=== PATIENT | male | born 1965 | race Caucasian/White ===

== ENCOUNTER 2024-06-04 16:13 | Emergency (ER) | payer OTHER, SELFPAY ==
--- OUTSIDE RECORDS SUMMARY | 2024-06-04 16:15 | XMS_ITS | Clinical Summary ---
Author Organization [facility] Address [place], [place] [address] Care Team Providers Care Hospital Sales Representative Name Role Phone VotelBritton MD Primary Care Provider + Allergies No known active allergies Medications lisinopriL (PRINIVIL; ZESTRIL) 20 mg tabletIndication s:Hypertension, unspecified type Take 1 Tablet (20 mg) by mouth once daily. 90 Tablet 3 4 Active CPAPIndications: SANTOSH (obstructive sleep apnea) RESMED CPAP (E0601) machine for home use at pressure: 6-15cmw, Choice of mask (A7030 or A7034) w/full face cushion (A7031) x1/mo, nasal cushion (A7032) x2/mo, or nasal pillows (A7033) x 2/mo; Length of Need: 99 months; Frequency of use: Daily 1 Each 11 4 Active Active Problems Problem Noted Date Diagnosed Date Adjustment disorder with mixed anxiety and depre ssed mood 07/21/2019 Anal fissure 11/25/2016 Overview (11/25/2016): Colonoscopy 11/2016 anal fissure repeat in 10 years HTN (hypertension) 06/17/2009 High cholesterol 06/17/2009 SANTOSH AHI- 14, positional 41 04/21/2008 Resolved Problems Problem Noted Date Diagnosed Date Resolved Date Elevated BP 04/03/2008 05/20/2009 Encounters Date Type Department Care Team Description 03/05/2024 8:30 AM CDT Telemedicine [facility] [address] [place] [address] Kelby Jones MD Sleep Follow-up; Telehealth (Virtual visit, no vitals taken) from Last 3 Months Immunizations Name Administration Dates Next Due COVID-19 vaccine (Moderna 100mcg/0.5mL) PF, MDV 04/16/2021,07/26/2020,06/28/2020 Hepatitis A (Adult) 08/06/2014,02/09/2011 Influenza RIV4 (Age 18+ Year s) PRESERV FREE 04/23/2022 Influenza, IIV3 (Age 6-35 mos) 6,02/11/2015,02/09/2011,2008 Influenza, IIV3 (Age >=3 years) 03/19/20 14,03/07/2013,03/08/2012,2010,03/11/2010,05/05/2009,04/03/2008,1 06/28/2005,03/25/2004 Influenza, IIV4 04/22/2023,,03/26/2020,2017 Influenza, IIV4 (=>6mos) MDV 03/07/2019 Influenza,CCIIV4 PRESERV FREE 03/22/2017 Td (Age >=7 Years) 06/16/2003 Td, Preservative Free (age > = 7 Years) 10/11/2022 Tdap 10/04/2012 Zoster (Shingrix-RZV, recombinant) 10/11/2022, Family History Medical History Relation Name Comments Diabetes Brother 2 type 2 Cancer-ovarian Daughter Mandi large tumor, small malignancy Hypertension Father Other Father hx of blood sho ts Diabetes Mother Hypertension Mother Relation Name Status Comments Brother 1 Alive Brother 2 Daughter Mandi Alive Father Alive Mother Alive Social History Tobacco Use Types Packs/Day Years Used Date Smoking Tobacco: Never Smokeless Tobacco: Current Chew Last attempted to quit: 02/03/2009 Tobacco Cessation:Ready to Q uit: No; Counseling Given: Yes Comments:on/off Alcohol Use Standard Drinks/Week Comments Yes 0 (1 standard drink = 0.6 oz pur e alcohol) 4 drinks per week [facility] Utilities Answer Date Recorded Do you have trouble paying f or utilities (for example, heat, electricity, water, phone)? Yes 11/14/2023 PHQ-2 Answer Date Recorded PHQ-2 TOTAL SCORE 3 11/14/2023 Social Connections Answer Date Recorded Do you often feel lonely or isolated from those around you? 0 11/14/2023 Financial Resource Strain Answer Date R ecorded Difficulty of Paying Living Expenses 3 11/14/2023 Difficulty of Paying Living Expenses Not on file 11/14/2023 Food Insecurity Answer Date Recorded Do you worry your food will run out before you are able to buy more? 1 11/14/2023 Transportation Needs Answer Date Record ed Does lack of transportation keep you from medica l appointments? 1 11/14/2023 Does lack of transportation keep you from work, meetings or getting things that you need? 1 11/14/2023 Housing Stability Answer Date Recorded What is your housing situation today? 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 Not on file Not on f ile Obstetrics History Last Filed Vital Signs Vital Sign Reading Time Taken Comments Blood Pressure 134/86 11/14/2023 8:29 AM CDT Pulse 66 11/14/2023 8:29 AM CDT Temperature 36.8 C (98.3 F) 11/14/2023 8:26 AM CDT Respiratory Rate 16 04/03/2008 7:41 AM CDT Oxygen Saturation 95% 11/14/2023 8:26 AM CDT Inhaled Oxygen Concentration - - Weight 106.4 kg (234 lb 8 oz) 11/14/2023 8:26 AM CDT Height 172.7 cm (5' 8) 11/14/2023 8:26 AM CDT Body Mass Index 35.66 11/14/2023 8:26 AM CDT Plan of Treatment Health Maintenance Due Date Last Done Comments HIV for age 15-65 1981 Hepatitis C screening for ag e 18-79 1984 Pneumococcal series for age 50+ (1 of 1 - PCV) 2016 Influenza for age 50-64 02/04/2024 04/22/20 23, 04/23/2022, 02/27/2021, Additional history exists BMI (ht and wt on same day) for age 18+ 11/13/2024 11/14/2023, 10/11/2023, 10/11/2022, Additional history exists Depression screening for age 12+ 11/13/2024 11/14/2023, 11/08/2023, 10/11/2023, Additional history exists Colonoscopy through age 75 11/25/2026 11/25/2016, Lipids for age 45-75 11/05/2028 11/06/2023, 10/11/2022, 10/06/2021, Additional history exists Tetanus booster 10/11/2032 10/11/2022, 0507/2012, 06/16/2003 Tdap Completed 10/04/2012 Zoster (shingles) series for age 50+ Completed 10/11/2022, 10/06/2021 COVID-19 vaccine series Completed 03/02/20 24, 04/22/2023, 04/23/2022, Additional history exists Procedures Procedure Name Priority Date/Time Associated Diagnosis Comments LIPID PANEL W REFLEX MEASURED LDL Routine 11/06/2023 7:57 AM CDT High cholesterol COLONOSCOPY 11/25/2016 10:09 AM CDT from Last 3 Months or Most Recently Relevant to Health Maintenance Results * (ABNORMAL) LIPID PANEL W REFLEX MEASURED LDL (11/06/2023 7:57 AM CDT) CHOLESTEROL,TOTAL 208(H) 100 - 199 mg/dL 11/06/2023 3:58 PM CDT [facility] Comment: Cholesterol, Total Reference Ranges Desirable <200 mg/dL Borderline 200-239 mg/dL High >=240 mg/dL TRIGLYCERIDES 321(H) <150 mg/dL 11/06/2023 3:58 PM CDT [facility] HDL CHOLESTEROL 34(L) >40 mg/dL 3:58 PM CDT [facility] NON-HDL CHOLESTEROL 174(H) <145 mg/dl 11/06/2023 3:58 PM CDT [facility] CHOL/HDL RATIO 6.12(H) <4.50 11/06/2023 3:58 PM CDT [facility] LDL CHOLESTEROL 110 <=130 mg/dL 11/06/2023 3:58 PM CDT [facility] VLDL CHOLESTEROL 64(H) <=30 mg/dL 11/06/2023 3:58 PM CDT [facility] PROVIDER ORDERED STATUS RANDOM 11/06/2023 3:58 PM CDT [facility] Blood BLOOD SPECIMEN / Unknown Venipuncture / Unknown 11/06/2023 7:57 AM CDT 11/06/2023 7:57 AM CDT us Britton Elliott MD CHEMISTRY Final Re sult [facility] [address] [place] [address], [place] * COLONOSCOPY (11/25/2016 10:09 AM CDT) 11/25/2016 10:0 9 AM CDT Narrative Transcriptions Fabien Mock MD - 11/25/2016 10:59 AM CDT Patient Name: Tin Isaacs Procedure Date: 11/25/2016 Gender: Male Date of : 1965 Admit Type: Outpatient Procedure: Colonoscopy Proceduralist: Fabien Mock MD , Rosy Rushing (Nurse) Referring MD: Britton Elliott Indications/Pre-Op Diagnosis: This is the patient's first colonoscopy,Rectal bleeding Medications: Fentanyl 100 micrograms IV, Midazolam 4 mgIV, The level of sedation administered wasmoderate Procedure Description: The patient had risks, benefits and alternatives explained to andgave informed consent. The patient had a stable cardiopulmonary status and judged an adequate candidate for conscious sedation. The PCF-Q290AL [id number] was passed through the anus and advanced tothe cecum, identified by appendiceal orifice and ileocecal valve. The colonoscopy was performed without difficulty. The patient toleratedthe procedure well. The quality of the bowel preparation was excellent.The ileocecal valve, appendiceal orifice, and rectum were photographed. Complications: No immediate complications. Estimated Blood Loss & Specimen: Estimated blood loss: none. Specimen collected - None Findings: The perianal and digital rectal examinations were normal. A small anal fissure was found in the anal canal. The exam was otherwise without abnormality on direct and retroflexion views. Impressions/Post-Op Diagnosis: - Anal fissure. - The examination was otherwise normal on direct and retroflexionviews. - No specimens collected. Recommendation: - Resume previous diet. - Continue present medications. - Repeat colonoscopy in 10 years for screening purposes. - Use original regular Metamucil one teaspoon PO BID for 3 months. Moderate Sedation: Moderate (conscious) sedation was administered by the endoscopy nurse and supervised by the endoscopist. The following parameters were monitored: oxygen saturation, heart rate, respiratory rate, blood pressure, adequacy of pulmonary ventilation and reponse to care. [facility] and nursing notes for moderate sedation details. Total physician intraservice time was 24 minutes. Fabien Mock MD 11/25/2016 10:59:05 AM This report has been signed electronically. Note Initiated On: 11/25/2016 10:09 AM Scope In: 10:32:11 AM Scope Withdrawal Time 0 hours 10 minutes 8 seconds Scope Out: 10:49:55 AM us Fabien Mock MD PROCEDURE ORD Final Res ult from Last 3 Months or Most Recently Relevant to Health Maintenance Insurance [employer] [place] Care Teams Hospital Sales Representative Relationship Specialty Start Date End Date Vot[place]itton [place] [address] [place] [address] PCP - General 12/11/09
[2024-06-04 16:18] VITALS: BP 169/99; PULSE 71; RESP 18; TEMP 37.7; O2SAT 98; BMI 35.7
--- NOTE | 2024-06-04 16:42 | ED.GENADULT ---
HPI - General Adult General Time Seen by Provider: 16:42 Date Seen: 06/04/24 Chief complaint: Eye Problems Stated complaint: Hypertension - Vision problems Time Seen by Provider: 06/04/24 16:42 Source: patient, RN notes reviewed and old records reviewed Mode of arrival: ambulatory Limitations: no limitations History of Present Illness HPI narrative: 58-year-old male who presents today with concern for vision problem. patient notes intermittent double vision going on since yesterday. He says this seems to be side to side and only when he is up and walking around or moving, does not have it at rest and does not seem to be worse when he is doing close work. He denies headache, dizziness, nausea, vomiting, or any other vision change. No chest pain or shortness of breath. No difficulty swallowing or breathing. Checked his blood pressure at home and found it to be elevated so decided to come to the emergency department. Related Data Home Medications ?Medication ?Instructions ?Recorded ?Confirmed lisinopril 10 mg tablet 10 mg PO DAILY 06/04/24 06/04/24 Allergies Allergy/AdvReac Type Severity Reaction Status Date / Time No Known Drug Allergies Allergy Verified 06/04/24 17[facility] Social History Do you use any of these nicotine containing products: Smokeless Tobacco How often do you have a drink containing alcohol: 2-4 times a month AUDIT-C Alcohol total score: 2 Non-prescribed substance use: denies use Exam Narrative: Exam Narrative: General: Well-developed and well-nourished, no acute distress Head: Atraumatic and normocephalic Eyes: Pupils are equal reactive, extraocular motions intact, conjunctiva clear ENT: External nose and ears are normal, posterior pharynx without erythema or exudate Neck: No midline cervical tenderness, full spontaneous range of motion the neck, trachea midline, no adenopathy Heart: Regular rate and rhythm no murmurs or thrills Lungs: Clear to auscultation bilaterally without wheezes or crackles Abdomen: Soft, nontender, nondistended with active bowel sounds Musculoskeletal: No tenderness, deformity, or edema Neurologic: Awake, alert, and oriented x3, no gross focal neurologic deficits, cranial nerves intact as tested Psych: Mood and affect are appropriate Skin: No rashes Const: Vital Signs, click to edit/add: Vital Signs - 24 hr 06/04/24 16:18 Temperature 99.9 F H Pulse Rate [Pulse Oximeter] 71 Respiratory Rate 18 Blood Pressure [Ri ght Upper Arm] 169/99 H Pulse Oximetry 98 Oxygen Delivery Me thod Room Air Course Course ED Course: Reviewed most recent primary care visit from November 2023 which was follow-up for hypertension, that time found to have hyperlipidemia as well, Continued on lisinopril, diet management of hyperlipidemia as patient previously had been unable to tolerate statin . Patient presents today with intermittent double vision since yesterday, occurs only when upright or walking. On exam here, patient is not complaining any double vision, no proptosis, external ocular movements are intact. Labs are ordered and CTA of the head neck due to concern for possible arterial insufficiency. Will discuss with Neurology. Reevaluation(s) Time of Reevaluation #1: 17:41 Reevaluation #1: Ambulated patient in the department, unable to elicit symptoms. Time of Reevaluation #2: 18:16 Reevaluation #2: CT scan of the head independently interpreted by me negative for acute intracranial findings, CTA and radiology interpretation pending Time of Reevaluation #3: 18:23 Reevaluation #3: Reviewed radiology interpretation of CTA head and neck negative for high-grade stenosis or occlusion. Will discuss with Neurology. Additional Reevaluation(s): 18:[address] Boogie, neurology who recommends outpatient follow-up with neurology an outpatient MRI as well. Discussed diagnosis and plan with patient, questions answered and stable for discharge Vital Signs Vital signs: Initial Vital Signs Temperature 99.9 F H 06/04/24 16:18 Temperature Source Temporal Artery Scan 06/04/24 16:18 Pulse Rate 71 06/04/24 16:18 Respiratory Rate 18 06/04/24 16:18 Blood Pressure 169/99 H 06/04/24 16:18 Blood Pressure Mean 122 H 06/04/24 16:18 Blood Pressure Position Sitting 06/04/24 16:18 Pulse Oximetry 98 06/04/24 16:18 Oxygen Delivery Method Room Air 06/04/24 16:18 Vital Signs Temperature 99.9 F H 06/04/24 16:18 Pulse Rate 71 06/04/24 16:18 Respiratory Rate 18 06/04/24 16:18 Blood Pressure 169/99 H 06/04/24 16:18 Pulse Oximetry 98 06/04/24 16:18 Oxygen Delivery Method Room Air 06/04/24 16:18 Temperature 99.9 F H 06/04/24 16:18 Pulse Rate 71 06/04/24 16:18 Respiratory Rate 18 06/04/24 16:18 Blood Pressure 169/99 H 06/04/24 16:18 Pulse Oximetry 98 06/04/24 16:18 Oxygen Delivery Method Room Air 06/04/24 16:18 Discharge Plan Discharge Clinical Impression: Diplopia Patient Disposition: Home, Self-Care Condition: Stable Instructions: Diplopia (ED) Additional Instructions: Follow-up with your primary care doctor for outpatient MRI of the brain and orbits Follow-up with neurology if symptoms persist Activity Level: Activity as Tolerated Discharge Diet: Regular Prescriptions: No Action lisinopril 10 mg tablet 10 mg PO DAILY Follow Up/Referrals: Provider,Not a Local [Primary Care Provider] - Stand Alone Forms: MyHealth Info Instructions
--- NOTE | 2024-06-04 16:59 | CRLHL7_ITS ---
For Patients: As a result of the Century Cures Act, medical imaging exams and procedure reports are released immediately into your electronic medical record. You may view this report before your referring provider. If you have questions, please contact your health care provider. CLINICAL HISTORY: Hypertension, diplopia. TECHNIQUE: Standard helical CT image acquisition through the head following the administration of intravenous contrast was performed. 3D and MIP reconstructions were performed at a separate workstation and permanently archived. COMPARISON: None available. FINDINGS: No intracranial proximal large vessel occlusion or flow-limiting luminal stenosis. No evidence of cerebral aneurysm. No findings to suggest an arterial-venous shunting lesion. The major dural venous sinuses and deep venous system are patent. IMPRESSION: No intracranial proximal large vessel occlusion, flow-limiting luminal stenosis, or cerebral aneurysm. Please note that all CT scans at this facility use dose modulation, iterative reconstruction, and/or weight-based dosing when appropriate to reduce radiation dose to as low as reasonably achievable. Dictated by Francisco Javier Melissa MD @ 06/05/2024 9:46:05 AM (Electronically Signed)
--- NOTE | 2024-06-04 16:59 | CRLHL7_ITS ---
For Patients: As a result of the Century Cures Act, medical imaging exams and procedure reports are released immediately into your electronic medical record. You may view this report before your referring provider. If you have questions, please contact your health care provider. INDICATION: Diplopia. Hypertension. TECHNIQUE: CT of the head without contrast. Coronal and sagittal reformats are included. COMPARISON: None. FINDINGS: No CT evidence of acute cortical infarct. No loss of carter white matter differentiation. No hyperdense vessels to suggest intracranial thrombus. No acute intracranial hemorrhage. No mass effect or midline shift. No hydrocephalus or extra-axial collections. White matter is within normal limits for age. No acute osseous abnormalities. Mastoid air cells and paranasal sinuses are clear. Normal soft tissues. IMPRESSION: IMPRESSION:1. No CT evidence of acute cortical infarct. No acute intracranial hemorrhage. No other acute intracranial findings. Please note that all CT scans at this facility use dose modulation, iterative reconstruction, and/or weight-based dosing when appropriate to reduce radiation dose to as low as reasonably achievable. Dictated by Danis Nickerson MD @ 06/04/2024 6:18:00 PM (Electronically Signed)
--- NOTE | 2024-06-04 16:59 | CRLHL7_ITS ---
For Patients: As a result of the Century Cures Act, medical imaging exams and procedure reports are released immediately into your electronic medical record. You may view this report before your referring provider. If you have questions, please contact your health care provider. CLINICAL HISTORY: Hypertension, double vision. TECHNIQUE: Standard helical CT image acquisition through the neck was performed after intravenous contrast bolus enhancement. 3D and MIP reconstructions were performed at a separate workstation and permanently archived. COMPARISON: None available. FINDINGS: The origins of the great vessels from the aortic arch are patent. The common carotid arteries are patent. Mild (<50%) stenosis of the proximal left ICA by NASCET criteria. No significant stenosis of the proximal right ICA. The more distal cervical segments of the ICAs are patent. The origins and cervical segments of the vertebral arteries are patent. IMPRESSION: Mild (<50%) stenosis of the proximal left ICA NASCET criteria. Please note that all CT scans at this facility use dose modulation, iterative reconstruction, and/or weight-based dosing when appropriate to reduce radiation dose to as low as reasonably achievable. Dictated by Francisco Javier Melissa MD @ 06/05/2024 9:42:50 AM (Electronically Signed)
--- OUTSIDE RECORDS SUMMARY | 2024-06-04 17:05 | XMS_ITS | Clinical Summary ---
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 file Not [...] - 199 mg/dL 11/06/2023 3:58 PM CDT [facility] Comment: Cholesterol, Total Reference Ranges Desirable <200 mg/dL Borderline 200-239 mg/dL High >=240 mg/dL TRIGLYCERIDES 321(H) <150 mg/dL 11/06/2023 3:58 PM CDT [facility] HDL CHOLESTEROL 34(L) >40 mg/dL 3:58 PM CDT [facility] NON-HDL CHOLESTEROL 174(H) <145 mg/dl 11/06/2023 3:58 PM CDT [facility] CHOL/HDL RATIO 6.12(H) <4.50 11/06/2023 3:58 PM CDT [facility] LDL CHOLESTEROL 110 <=130 mg/dL 11/06/2023 3:58 PM CDT [facility] VLDL CHOLESTEROL 64(H) <=30 mg/dL 11/06/2023 3:58 PM CDT [facility] PROVIDER ORDERED STATUS RANDOM 11/06/2023 3:58 PM CDT [facility] Blood BLOOD SPECIMEN / Unknown Venipuncture / Unknown 11/06/2023 7:57 AM CDT 11/06/2023 7:57 AM CDT us Britton Elliott MD CHEMISTRY Final Re sult [facility] [address] [place] [address], [place] * COLONOSCOPY (11/25/2016 10:09 AM CDT) [...] adequate candidate for conscious sedation. The PCF-Q290AL [id number] was passed through the anus and advanced [...] reponse to care. [facility] and nursing notes for [...] Recently Relevant to Health Maintenance Insurance [employer] [place] Care Teams Tube Depatcher Relationship Specialty Start Date End Date [place] [address] [place] [address] PCP - General 12/11/09
[2024-06-04 17:30] VITALS: BP 155/100; PULSE 73; RESP 16; O2SAT 96
[2024-06-04 18:30] VITALS: BP 137/98
== END 2024-06-04 18:51 | disposition home or self-care (01) ==
PROVIDERS: Emergency Provider Family Medicine
DX: H53.2 Diplopia (principal)
CPT/HCPCS: 70450; 70496; 70498; 99284; 99285; Q9967